=== PATIENT | female | born 2000 | race Hispanic/Latino ===

== ENCOUNTER 2024-08-19 15:36 | Day surgery (SDC) | payer OTHER ==
[2024-08-19 16:10] VITALS: BMI 34.2
[2024-08-19] MEDS ORDERED: hydrALAZINE 20 MG/ML VIAL SLOW IVP PRN (16:54)
[2024-08-19 17:33] LABS: #Eosinophils 0.18 10x3/uL (0.0-0.5); #Monocytes 0.77 10x3/uL (0.0-1.1); #Neutrophils 7.78 10x3/uL (1.5-8.4); %Basophils 0.9 % (0.0-2.0); %Eosinophils 1.6 % (0.0-6.0); %Lymphocytes 20.4 % (18.0-47.0); %Monocytes 6.8 % (0.0-10.0); %Neutrophils 68.5 % (40.0-75.0); Hematocrit 34.9 % (34.9-44.5); Hemoglobin 12.2 g/dL (12.0-15.5); Mean Corpuscular Hemoglobin 31.4 pg (27.0-33.0); Mean Corpuscular Volume 89.7 fL (81.6-98.3); Mean Platelet Volume 9.1 fL (7.4-10.4); Platelet Count 252 10x3/uL (150-450); Red Blood Cell (RBC) Count 3.89 10x6/uL (3.90-5.03); White Blood Cell (WBC) Count 11.4 10x3/uL (3.5-10.5)
[2024-08-19 17:56] LABS: ALT (SGPT) 20 U/L (8-55); AST (SGOT) 28 U/L (5-34); Albumin 2.9 g/dL (3.5-5.0); Alkaline Phosphatase 177 U/L (40-110); Anion Gap 14 mmol/L (10-20); BUN (Urea Nitrogen) 6 mg/dL (7.0-18.7); Bilirubin, Total 0.4 mg/dL (0.2-1.2); Calc. Creatinine Clearance 150 mL/min (70-130); Calcium 9.3 mg/dL (7.8-10.44); Carbon Dioxide 22 mmol/L (22-29); Chloride 104 mmol/L (98-107); Estimated GFR 129; Globulin 3.2 g/dL (2.4-3.5); Glucose 89 mg/dL (70-105); Potassium 3.6 mmol/L (3.5-5.1); Protein, Total 6.1 g/dL (6.0-8.3); Sodium 136 mmol/L (136-145)
[2024-08-19 21:05] LABS: Influenza A by NAA Not Detected (NotDetected); Influenza B by NAA Not Detected (NotDetected); RSV by NAA Not Detected (NotDetected); SARS-CoV-2 NAA Rapid Test Not Detected (NotDetected)
== END 2024-08-19 21:25 | disposition home or self-care (01) ==
LOC: CSHLD/OP 15:36
PROVIDERS: ATTEND Student in an Organized Health Care Education/Training Program
DX: O99.513 Diseases of the respiratory system complicating pregnancy, third trimester (principal); J06.9 Acute upper respiratory infection, unspecified; Z3A.37 37 weeks gestation of pregnancy; Z79.899 Other long term (current) drug therapy
CPT/HCPCS: 0241U; 80053; 85025; 87633

== ENCOUNTER 2024-08-28 12:36 | Inpatient (IN) | payer MEDICAID, OTHER ==
[2024-08-28 13:00] VITALS: BMI 27.1
[2024-08-28] MEDS ORDERED: hydrALAZINE 20 MG/ML VIAL SLOW IVP PRN ×3 (13:15→22:31)
[2024-08-28] MEDS ORDERED: Carboprost 250 MCG/ML AMP IM PRN (14:22)
[2024-08-28] MEDS ORDERED: Promethazine HCl 25 MG/ML VIAL IM PRN (14:22)
[2024-08-28] MEDS ORDERED: Tranexamic Acid 1,000 MG/10 ML VIAL IVP PRN (14:22)
[2024-08-28] MEDS ORDERED: Diphenoxylate HCl/Atropine Tablet PO PRN (14:22)
[2024-08-28] MEDS ORDERED: Misoprostol 200 MCG TAB PR PRN (14:22)
[2024-08-28] MEDS ORDERED: Ondansetron PF 4 MG/2 ML Vial IVP PRN ×2 (14:22→16:43)
[2024-08-28] MEDS ORDERED: Methylergonovine 0.2 MG/ML VIAL IM PRN (14:22)
[2024-08-28] MEDS ORDERED: Acetaminophen 500 MG TAB PO PRN (14:22)
[2024-08-28] MEDS ORDERED: Bicitra 30 ML UDCUP PO PRN (14:24)
[2024-08-28] MEDS ORDERED: Famotidine/PF 20 mg/2ml Vial SLOW IVP PRN (14:24)
[2024-08-28] MEDS ORDERED: Oxytocin 30 units/NS 500 ML 500 ML IV SCH (14:30)
[2024-08-28] MEDS ORDERED: CEFAZOLIN 2 GM in Sodium Chloride 0.9% 100 ML IVPB SCH (14:30)
[2024-08-28 14:51] LABS: Hemoglobin 13.1 g/dL (12.0-15.5); Mean Corpuscular HGB CONC 33.6 g/dL (32.0-36.0); Mean Corpuscular Hemoglobin 29.4 pg (27.0-33.0); Mean Corpuscular Volume 87.6 fL (81.6-98.3); Mean Platelet Volume 9.3 fL (7.4-10.4); Platelet Count 290 10x3/uL (150-450); RBC Distribution Width 13.7 % (11.5-14.5); Red Blood Cell (RBC) Count 4.45 10x6/uL (3.90-5.03); White Blood Cell (WBC) Count 17.9 10x3/uL (3.5-10.5)
[2024-08-28 15:05] LABS: Bilirubin Neg (Negative); Blood, Urine 25 (Negative); Clarity Clear (Clear); Glucose, Urine (Dipstick) Normal (Negative); Ketone, Urine Negative (Negative); Leukocyte 500 (Negative); Nitrite Negative (Negative); Protein, Urine (Dipstick) Negative (Neg-Trace); Specific Gravity, Urine 1.005 (1.005-1.030); Urobilinogen Normal mg/dL (Less than 2); pH, Urine 6.5 (5.0-9.0)
[2024-08-28 15:16] LABS: Amphetamine Not Detected (NotDetected); Barbiturates Screen Not Detected (NotDetected); Benzodiazepine Screen Not Detected (NotDetected); Cocaine Metabolite Screen Not Detected (NotDetected); Methadone Not Detected (NotDetected); Methamphetamine Not Detected (NotDetected); Opiate Screen Not Detected (NotDetected); Oxycodone Screen Not Detected (NotDetected); Phencyclidine (PCP) Not Detected (NotDetected); THC/Cannabinoid Screen Not Detected (NotDetected); Tricyclic Screen Not Detected (NotDetected)
[2024-08-28 15:23] LABS: Hep B Surf Ag - L&D Non-Reactive S/CO (NonReactive)
[2024-08-28 16:08] LABS: Analyzer IN Cardio CS NICU; RapidComm Collect By OR NURSE
[2024-08-28 16:09] LABS: Analyzer IN Cardio CS NICU; RapidComm Collect By OR NURSE; pH (Cord, venous) 7.277 (7.250-7.350)
[2024-08-28 16:27] LABS: CAUTI Indications for Culture Pregnancy
[2024-08-28 16:30] LABS: Bacteria/HPF 2+ HPF (None Seen); Squamous Epithelial 0-3 HPF (0-3)
[2024-08-28 16:31] LABS: Mucous/LPF 1+ LPF (<2+); Transitional Epithelial 0-3 HPF (None Seen)
[2024-08-28 16:32] LABS: Urine Culture Reflex Yes Yes
[2024-08-28 16:39] LABS: Syphilis Antibody Index 14.34 S/CO (<1.00 Non-Reactive)
[2024-08-28] MEDS ORDERED: Naloxone HCl 0.4 mg/ml Vial IV PRN (16:43)
[2024-08-28] MEDS ORDERED: diphenhydrAMINE 50 MG/ML VIAL IVP PRN (16:43)
[2024-08-28] MEDS ORDERED: Meperidine HCl/PF 25 MG (1 mL) VIAL SLOW IVP PRN (16:43)
[2024-08-28] MEDS ORDERED: Moisturizing Cream (Eucerin) 113 GM JAR TOP PRN (16:43)
[2024-08-28] MEDS ORDERED: Naloxone HCl 0.4 mg/ml Vial IVP PRN ×2 (16:43)
[2024-08-28] MEDS ORDERED: HYDROmorphone 0.5 MG/0.5 ML SYRINGE SLOW IVP PRN (16:43)
[2024-08-28] MEDS ORDERED: fentaNYL 50 mcg/mL 1 mL Vial SLOW IVP PRN (16:43)
[2024-08-28] MEDS ORDERED: Communication Order-Pharmacy FS SCH (16:45)
[2024-08-28] MEDS: Ondansetron PF 4 MG/2 ML Vial IVP PRN (17:00)
[2024-08-28] MEDS: Promethazine HCl 25 MG/ML VIAL IM PRN (18:11)
[2024-08-28] MEDS ORDERED: Bisacodyl 10 MG SUPP PR PRN (22:31)
[2024-08-28] MEDS ORDERED: Boostrix 0.5 ML (Tdap) VIAL (>/=7 yrs of age) IM ONE (22:31)
[2024-08-28] MEDS ORDERED: Lanolin Ointment 7 GM TUBE TOP PRN (22:31)
[2024-08-28] MEDS: Ketorolac Tromethamine 30 MG (1 mL) VIAL IVP PRN (22:48)
[2024-08-28 23:36] LABS: Syphilis Antibody INDETERMINATE (Nonreactive)
[2024-08-29] MEDS: cefTRIAXone\\ROCEPHIN 1 GM in Sodium Chloride 0.9% 100 ML IVPB SCH (02:37)
[2024-08-29] MEDS: Lactated Ringer's 1,000 ML IV SCH (02:57)
[2024-08-29] MEDS: Morphine PF 10 MG/10 ML VIAL ONE (02:58)
[2024-08-29] MEDS: PHENYLEPHRINE-NS 100 MCG/ML 10 ML SYRINGE ONE (02:58)
[2024-08-29] MEDS: fentaNYL 50 mcg/mL 1 mL Vial ONE (02:58)
[2024-08-29] MEDS: CEFAZOLIN 2 GM VIAL ONE (02:58)
[2024-08-29] MEDS: Oxytocin 10 UNITS/ML VIAL ONE ×2 (02:59→03:18)
[2024-08-29] MEDS: Dexamethasone 10 MG/ML VIAL ONE (02:59)
[2024-08-29] MEDS: Ketorolac Tromethamine 30 MG (1 mL) VIAL ONE (02:59)
[2024-08-29] MEDS: Ondansetron PF 4 MG/2 ML Vial ONE (03:00)
[2024-08-29] MEDS: Erythromycin Base 0.5% Oint 1 GM TUBE ONE (03:19)
[2024-08-29] MEDS: Docusate 100 MG CAP PO SCH ×2 (03:19→07:52)
[2024-08-29] MEDS: Phytonadione Neonatal 1 MG/0.5 ML AMP ONE (03:19)
[2024-08-29 05:56] LABS: Hematocrit 32.4 % (34.9-44.5); Hemoglobin 11.4 g/dL (12.0-15.5); Mean Corpuscular HGB CONC 35.2 g/dL (32.0-36.0); Mean Corpuscular Hemoglobin 30.8 pg (27.0-33.0); Mean Corpuscular Volume 87.6 fL (81.6-98.3); Mean Platelet Volume 9.4 fL (7.4-10.4); Platelet Count 266 10x3/uL (150-450); RBC Distribution Width 13.6 % (11.5-14.5); White Blood Cell (WBC) Count 22.9 10x3/uL (3.5-10.5)
[2024-08-29] MEDS: Prenatal Vitamin 1 TAB PO SCH (07:52)
[2024-08-29] MEDS: HYDROcodone/Acetaminophen 5/325 mg Tablet PO PRN ×2 (10:54→22:10)
[2024-08-30] MEDS: cefTRIAXone\\ROCEPHIN 1 GM in Sodium Chloride 0.9% 100 ML IVPB SCH (03:52)
[2024-08-30] MEDS: Ibuprofen 800 MG TAB PO PRN (12:12)
[2024-08-30] MEDS: Clindamycin/D5W 900 MG in Premix 1 BAG IVPB SCH (14:15)
[2024-08-30] MEDS: Clindamycin/D5W 900 mg/50 ml Premix Bag ONE (19:27)
[2024-08-31 05:30] LABS: #Eosinophils 0.27 10x3/uL (0.0-0.5); #Monocytes 1.07 10x3/uL (0.0-1.1); #Neutrophils 9.39 10x3/uL (1.5-8.4); %Basophils 0.7 % (0.0-2.0); %Lymphocytes 20.1 % (18.0-47.0); %Monocytes 7.8 % (0.0-10.0); %Neutrophils 68.3 % (40.0-75.0); Hematocrit 33.4 % (34.9-44.5); Hemoglobin 11.5 g/dL (12.0-15.5); Mean Corpuscular HGB CONC 34.4 g/dL (32.0-36.0); Mean Corpuscular Hemoglobin 30.9 pg (27.0-33.0); Mean Corpuscular Volume 89.8 fL (81.6-98.3); Mean Platelet Volume 8.9 fL (7.4-10.4); Platelet Count 289 10x3/uL (150-450); RBC Distribution Width 14.1 % (11.5-14.5); Red Blood Cell (RBC) Count 3.72 10x6/uL (3.90-5.03); White Blood Cell (WBC) Count 13.7 10x3/uL (3.5-10.5)
[2024-08-31 11:42] VITALS: BP 96/55; TEMP 97.6
== END 2024-08-31 13:30 | disposition home or self-care (01) | DRG 787 ==
LOC: CSHLD/OP 12:36 → CSHLD 14:44 → CSHPP 20:00
PROVIDERS: ADMIT Family Medicine; ATTEND Family Medicine
PROC: 10D00Z1 Extraction of Products of Conception, Low, Open Approach (ICD-10-PCS; principal; 2024-08-28)
PROC: 4A033R1 Measurement of Arterial Saturation, Peripheral, Percutaneous Approach (ICD-10-PCS; 2024-08-28)
DX: O76 Abnormality in fetal heart rate and rhythm complicating labor and delivery (principal); N39.0 Urinary tract infection, site not specified; O86.20 Urinary tract infection following delivery, unspecified; Z3A.39 39 weeks gestation of pregnancy; Z37.0 Single live birth
CPT/HCPCS: 36415; 51702; 76819; 80306; 81001; 82805; 85025; 85027; 86140; 86593; 86780; 86850; 86900; 86901; 87086; 87340; 99285; J0696; J1100; J1885; J2274; J2405; J2550; J2590; J3010; J3490